=== PATIENT | female | born 1995 | race Two or more races ===

== ENCOUNTER 2025-08-18 11:13 | Inpatient (IN) ==
--- NOTE | 2025-08-18 11:47 | DR.GENAD ---
HPI Time Seen Time Seen by Provider: 08/18/25 11:46 PCP Primary Care Physician: Shantel Erickson Complaint/Symptoms Chief Complaint Doctors Comments: 30 yo F, no med hx, c/o increasing bilat lower back pain and diffuse abd pain for past 4 days with increasing severity, accomp by fatigue, malaise and nausea. Developed fever last night. Denies other complaints. 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 She states the pain worse when she lays down or moves around alot. Pain started Saturday; has taken tylenol/motrin with no relief. She has been unable to eat or drink x3 days. She states her headache started around Saturday and is "really bad like my eyes are about to pop out". Pt admits she vomited x1 on Saturday; denies nausea Self Treatment fo Chief Complaint: No relief with tylenol/motrin COVID-19 Coronavirus risk:travel/contact w/high risk person: No Has patient experienced Coronavirus symptoms: No Source History Provided: Patient and Other Mode of Arrival Mode of Arrival: Ambulatory Timing Onset of Chief Complaint: 08/14/25 PMH PMH Past Medical History: No Past Surgical History: Yes Surgical History: Family History History of Family Medical Conditions: No Social History Does patient currently use any type of tobacco product: No Have you used tobacco products in the last 12 months: No Type of Tobacco Use: None Does any household member use tobacco: No Alcohol Use: None Do you use any recreational Drugs:: No Lives With: Spouse and Family Lives Where: Home Travel Risk Coronavirus risk:travel/contact w/high risk person: No Has patient experienced Coronavirus symptoms: No Infectious screening In the last 2 months have you had wt loss of >10#?: NO Have you had fever, night sweats or hemotysis?: No Have you traveled outside the country in the last 6 months?: No Isolation: Standard ROS Review of Systems Constitutional: Chills, Fever, Malaise, Weakness and Fatigue Gastrointestinal/Abdominal: Abdominal Pain and Nausea Genitourinary: Pain (bilat flank) All Other Systems: Reviewed and Negative PE Vital Signs Vitals: Vital Signs Temperature 99.1 F Pulse Rate 129 Pulse Rate 127 Pulse Rate 121 Pulse Rate 126 Pulse Rate 127 Pulse Rate 132 Pulse Rate 121 Pulse Rate 120 Pulse Rate 124 Pulse Rate 119 Pulse Rate 124 Pulse Rate 124 Pulse Rate 128 Respiratory Rate 32 Respiratory Rate 27 Respiratory Rate 25 Respiratory Rate 24 Respiratory Rate 22 Respiratory Rate 31 Respiratory Rate 27 Respiratory Rate 27 Respiratory Rate 24 Respiratory Rate 13 Respiratory Rate 18 Respiratory Rate 18 Respiratory Rate 20 Blood Pressure 113/73 Blood Pressure 115/75 Blood Pressure 117/78 Blood Pressure 105/67 Blood Pressure 110/68 O2 Sat by Pulse Oximetry 93 O2 Sat by Pulse Oximetry 97 O2 Sat by Pulse Oximetry 95 O2 Sat by Pulse Oximetry 98 O2 Sat by Pulse Oximetry 97 O2 Sat by Pulse Oximetry 97 O2 Sat by Pulse Oximetry 96 O2 Sat by Pulse Oximetry 96 O2 Sat by Pulse Oximetry 97 O2 Sat by Pulse Oximetry 100 O2 Sat by Pulse Oximetry 100 O2 Sat by Pulse Oximetry 100 O2 Sat by Pulse Oximetry 98 General General Appearance: Other (ill appearing) Head Head Exam: Normal Inspection Eyes Eye exam: Normal Appearance ENT ENT Exam: Normal Exam External Ear Exam: Normal External Inspection TM/Canal Exam: Bilateral: Normal Nose Exam: Normal Nose Exam Mouth Exam: Normal Inspection Throat Exam: Normal Inspection Neck Neck Exam: Normal Inspection Chest Chest Inspection: Normal Inspection Respiratory Respiratory Exam: Normal Lung Sounds Bilat Respiratory Exam: Bilateral: Clear to Auscultation Abdominal Exam Abdominal Exam: Normal Inspection, Normal Bowel Sounds and Soft Abdominal Tenderness: Diffuse (diffuse abd tenderness.) Extremities Extremities Exam: Normal Inspection Back Back Exam: Normal Inspection Neurologic Neurological Exam: Alert and Oriented X3 Psychiatric Psychiatric Exam: Normal Affect and Normal Mood Skin Skin Exam: Warm, Dry, Intact and Normal Color ROR Labs Reviewed Laboratory Results Reviewed?: Yes 08/18/25 11:52 08/18/25 11:52 Laboratory: WBC 12.3 X10^3/uL (3.6-10.0) H 08/18/25 11:52 RBC 4.02 X10^6/uL (3.5-5.4) 08/18/25 11:52 Hgb 11.9 g/dL (12.0-16.0) L 08/18/25 11:52 Hct 34.8 % (36.0-47.0) L 08/18/25 11:52 MCV 86.5 fL (80.0-100.0) 08/18/25 11:52 MCH 29.5 pg (27.0-34.0) 08/18/25 11:52 MCHC 34.1 g/dL (33.0-35.0) 08/18/25 11:52 RDW 14.0 % (11.6-16.5) 08/18/25 11:52 Plt Count 155 X10^3/uL (150.0-450.0) 08/18/25 11:52 MPV 9.2 fL (7.4-11.0) 08/18/25 11:52 Neut % (Auto) 88.0 % (42.0-75.0) H 08/18/25 11:52 Lymph % (Auto) 5.5 % (21.0-51.0) L 08/18/25 11:52 [place] % (Auto) 5.6 % (0.0-13.0) 08/18/25 11:52 Eos % (Auto) 0.5 % (0.9-2.9) L 08/18/25 11:52 Baso % (Auto) 0.4 % (0.2-1.0) 08/18/25 11:52 Neut # (Auto) 10.9 x10^3/uL (2.2-4.8) H 08/18/25 11:52 Lymph # (Auto) 0.7 X10^3/uL (1.3-2.9) L 08/18/25 11:52 [place] # (Auto) 0.7 x10^3/uL (0.3-0.8) 08/18/25 11:52 Eos # (Auto) 0.1 x10^3/uL (0.0-0.2) 08/18/25 11:52 Baso # (Auto) 0.0 X10^3/uL (0.0-0.1) 08/18/25 11:52 Absolute Nucleated RBC 0.0 /100WBC 08/18/25 11:52 Sodium 133 mmol/L (136-145) L 08/18/25 11:52 Corrected Sodium 133 mmol/L (136-145) L 08/18/25 11:52 Potassium 2.8 mmol/L (3.5-5.1) L* 08/18/25 11:52 Chloride 96 mmol/L (98-107) L 08/18/25 11:52 Carbon Dioxide 29.2 mmol/L (21-32) 08/18/25 11:52 BUN 15 mg/dL (7-18) 08/18/25 11:52 Creatinine 1.02 mg/dL (0.55-1.02) 08/18/25 11:52 Est GFR (MDRD) Af Amer > 60 (>60) 08/18/25 11:52 Est GFR (MDRD) Non-Af > 60 (>60) 08/18/25 11:52 Glucose 119 mg/dL (65-99) H 08/18/25 11:52 Lactic Acid 0.8 mmol/L (0.4-2.0) 08/18/25 13:20 Calcium 8.1 mg/dL (8.5-10.1) L 08/18/25 11:52 Corrected Calcium 9.4 mg/dL (8.5-10.1) 08/18/25 11:52 Total Bilirubin 0.60 mg/dL (0.2-1.0) 08/18/25 11:52 AST 26 Units/L (15-37) 08/18/25 11:52 ALT 32 Units/L (12-78) 08/18/25 11:52 Alkaline Phosphatase 175 Units/L (46-116) H 08/18/25 11:52 Total Protein 7.0 g/dL (6.4-8.2) 08/18/25 11:52 Albumin 2.4 g/dL (3.4-5.0) L 08/18/25 11:52 Globulin 4.6 g/dL (2.5-4.5) H 08/18/25 11:52 Albumin/Globulin Ratio 0.5 Ratio (1.1-2.1) L 08/18/25 11:52 Lipase 27 Units/L (16-77) 08/18/25 11:52 HCG, Qual Negative <10 mIU/mL 08/18/25 11:52 Specimen Type Clean catch urine 08/18/25 11:42 Urine Color Dark yellow (YELLOW) 08/18/25 11:42 Urine Appearance Cloudy (CLEAR) 08/18/25 11:42 Urine pH 7.0 (5.0 - 8.0) 08/18/25 11:42 Ur Specific Vader 1.010 (1.000-1.030) 08/18/25 11:42 Urine Protein 3+ (NEGATIVE) 08/18/25 11:42 Urine Glucose (UA) Negative (NEGATIVE) 08/18/25 11:42 Urine Ketones Negative (NEGATIVE) 08/18/25 11:42 Urine Blood 4+ (NEGATIVE) 08/18/25 11:42 Urine Nitrite Positive (NEGATIVE) 08/18/25 11:42 Urine Bilirubin Negative (NEGATIVE) 08/18/25 11:42 Urine Urobilinogen 3+ (NORMAL) 08/18/25 11:42 Ur Leukocyte Esterase 3+ (NEGATIVE) 08/18/25 11:42 Urine RBC 5-10 /HPF (0-3) A 08/18/25 11:42 Urine WBC 10-20 /HPF (0-5) A 08/18/25 11:42 Ur Squamous Epith Cells Few /HPF (NEGATIVE) 08/18/25 11:42 Urine Bacteria 2+ /HPF (NEGATIVE) 08/18/25 11:42 Ur Culture Indicated? Yes/culture set up 08/18/25 11:42 Opioid Opioid Risk Tool Age (Dar box if 16-45): Yes History of Preadolescent Sexual Abuse: No Total: 1 Total Score Risk Category: Low Risk Copyright: Maikel LINTON predicting aberrant behaviors Discharge Plan Diagnosis Discharge Problem: Sepsis secondary to UTI, Pyelonephritis Discharge Plan Patient Disposition: 09 ADMITTED INPATIENT Condition: Stable Prescriptions: No Action [facility] Concerns: Post Hospitalization: new medications and changes needed to prevent readmission or further decline. Pt educated and given instructions on all concerns. Plan of Treatment: Continue with present treatment and follow up plan. Pt is to keep follow up appointment as instructed and take medications as ordered. Follow ups/Referrals Follow ups/Referrals: [facility] [Primary Care Provider] - 3 days Instructions Stand Alone Forms: Find Help Web Site, Post Hospital Follow Up Care Print Language: GREEK Provider Note Additional Notes spoke with Dr Law, accepts admit
[2025-08-18 11:51] LABS: BLOOD/HEMOGLOBIN,URINE 4+ (NEGATIVE); LEUKOCYTE ESTERASE ,URINE 3+ (NEGATIVE); NITRITES,URINE POSITIVE (NEGATIVE)
[2025-08-18 11:52] LABS: APPEARANCE,URINE CLOUDY (CLEAR)
[2025-08-18] MEDS: ZOFRAN INJ 4 MG VIAL IVP ONE (11:54)
[2025-08-18] MEDS: NS 1,000 ML IV 1,000 ML IV ONE (11:54)
[2025-08-18] MEDS: MORPHINE SULFATE INJ 4 MG IVP ONE (11:55)
[2025-08-18 11:59] LABS: SQUAMOUS EPITHELIAL CELL,UR FEW /HPF (NEGATIVE)
[2025-08-18 12:04] LABS: MEAN PLATELET VOLUME 9.2 fL (7.4-11.0); RED CELL DISTRIBUTION WIDTH 14.0 % (11.6-16.5)
[2025-08-18 12:13] LABS: COR CA(FOR HYPOALB) 9.4 mg/dL (8.5-10.1); COR NA(FOR HYPERGLY) 133 mmol/L (136-145); CREATININE 1.02 mg/dL (0.55-1.02); eGFR NON BLACK RACES > 60 (>60)
[2025-08-18 12:14] LABS: SERUM PREGNANCY TEST, QUAL NEGATIVE <10 mIU/mL
[2025-08-18] MEDS: OMNIPAQUE 350 mg/mL 100 mL BTL IVP NR (12:37)
[2025-08-18] MEDS: K-DUR TAB 20 MEQ PO SCH (13:10)
[2025-08-18] MEDS: ROCEPHIN VIAL 1 GRAM IV SCH (13:10)
--- NOTE | 2025-08-18 13:30 | CT ---
EXAM: CT ABDOMEN AND PELVIS WITH CONTRAST HISTORY: DIFFUSE ABD PAIN ; COMPARISON: None. TECHNIQUE: Axial CT images were obtained through the abdomen and pelvis after the intravenous administration of contrast. Coronal and sagittal reformatted images were included. Informed written consent was obtained prior to contrast administration. All CT scans at this facility use dose modulation, iterative reconstruction, and/or weight based dosing when appropriate to reduce radiation dose to as low as reasonably achievable. FINDINGS: Trace right pleural effusion and mild bibasilar atelectasis. Unremarkable liver, gallbladder, spleen, pancreas, and adrenals. No biliary dilatation. Edematous right kidney with patchy decreased parenchymal enhancement. No hydronephrosis or evidence of urinary obstruction. Normal left kidney. Mildly thickened urinary bladder. Renal vasculature is patent. Normal caliber abdominal aorta. No lymphadenopathy. No abnormally distended or focally thickened bowel loops. Normal right lower quadrant appendix. No free peritoneal air or fluid. Uterus and adnexa are within normal limits. No free pelvic fluid. No acute osseous findings. Mild lumbar spondylosis. IMPRESSION: 1. Findings suggestive of cystitis with ascending right urinary tract infection and right pyelonephritis. No urinary calculi or evidence of urinary obstruction. 2. No acute bowel pathology. Normal appendix. THIS IS AN ELECTRONICALLY VERIFIED FINAL REPORT 08/18/2025 1:26 PM - Electronically signed by Jonathan Willis MD
[2025-08-18] MEDS ORDERED: ULTRAM PO PRN (14:18)
[2025-08-18] MEDS ORDERED: MORPHINE SULFATE INJ 2 MG INJ IVP PRN (14:18)
[2025-08-18] MEDS: OMNIPAQUE 350 mg/mL 100 mL BTL 100 ML ONE (14:37)
[2025-08-18] MEDS: NS 1,000 ML IV 1,000 ML IV SCH (14:51)
[2025-08-18] MEDS ORDERED: CONSULT PHARMACY - POTASSIUM & MAGNESIUM XX SCH (15:00)
[2025-08-18] MEDS: ZOSYN VIAL 3.375 GRAMS 3.375 G in NS 100 ML IV 100 ML IV SCH (15:53)
[2025-08-18] MEDS: TYLENOL 325 MG TAB PO PRN (15:53)
[2025-08-18 16:10] VITALS: BMI 23.8
[2025-08-18] MEDS: ASCORBIC ACID INJ MULTI-DOSE VIAL 3,000 MG in NS 50 ML IV 50 ML IV SCH (16:20)
[2025-08-18] MEDS: THIAMINE HCL INJ IVP SCH (16:20)
[2025-08-19 04:52] LABS: MEAN PLATELET VOLUME 9.4 fL (7.4-11.0); RED CELL DISTRIBUTION WIDTH 14.3 % (11.6-16.5)
[2025-08-19 05:02] LABS: COR CA(FOR HYPOALB) 9.4 mg/dL (8.5-10.1); COR NA(FOR HYPERGLY) 144 mmol/L (136-145); CREATININE 0.87 mg/dL (0.55-1.02); eGFR NON BLACK RACES > 60 (>60)
[2025-08-19] MEDS: NS 50 ML IV 50 ML IV ONE (08:24)
[2025-08-19] MEDS: NORCO 5/325 MG TAB PO PRN (10:23)
[2025-08-19] MEDS: NS 250 ML IV 25 ML IV PRN (21:05)
[2025-08-20 05:04] LABS: MEAN PLATELET VOLUME 9.2 fL (7.4-11.0); RED CELL DISTRIBUTION WIDTH 14.6 % (11.6-16.5)
[2025-08-20 05:18] LABS: COR CA(FOR HYPOALB) 9.5 mg/dL (8.5-10.1); CREATININE 0.88 mg/dL (0.55-1.02); eGFR NON BLACK RACES > 60 (>60)
[2025-08-20] MEDS ORDERED: CONSULT PHARMACY - POTASSIUM & MAGNESIUM XX SCH (06:00)
[2025-08-20] MEDS: NS + KCL 20 MEQ/L 1,000 ML with MAGNESIUM SULFATE 50% INJ VIAL 1 G IV SCH (08:30)
[2025-08-20 08:38] VITALS: BP 103/65; PULSE 79; RESP 19; TEMP 98.4; O2SAT 99
[2025-08-20] MEDS ORDERED: K-DUR TAB 20 MEQ PO SCH (10:00)
[2025-08-20] MEDS ORDERED: MAG-OX TAB PO SCH (10:00)
== END 2025-08-20 11:20 | disposition home or self-care (01) | DRG 872 ==
LOC: ER 11:13 → MED/SURG 14:18 → ICU 18:16
PROVIDERS: ADMIT Obstetrics & Gynecology Obstetrics; ATTEND Obstetrics & Gynecology Obstetrics
DX: R79.89 Other specified abnormal findings of blood chemistry; M54.59 Other low back pain; R73.09 Other abnormal glucose; Z55.8 Other problems related to education and literacy; N10 Acute pyelonephritis; D64.89 Other specified anemias; Z59.868 Other specified financial insecurity; R10.84 Generalized abdominal pain; N39.0 Urinary tract infection, site not specified; D72.828 Other elevated white blood cell count; B96.29 Other Escherichia coli [E. coli] as the cause of diseases classified elsewhere; R53.83 Other fatigue; E83.51 Hypocalcemia; E87.6 Hypokalemia; A41.51 Sepsis due to Escherichia coli [E. coli]; E87.1 Hypo-osmolality and hyponatremia; Z16.29 Resistance to other single specified antibiotic